=== PATIENT | female | born 1985 | race Caucasian/White ===

== ENCOUNTER 2020-02-04 19:00 | Emergency (ER) | payer BC, MEDICAID ==
[2020-02-04 19:17] VITALS: BP 129/85
--- NOTE | 2020-02-04 20:22 | UC ---
Ear Complaint HPI - HPI Summary HPI Summary: 35-year-old female presents with complaints of left ear pain. States over the past month she has been having some itching and irritation within the ear canal of the left ear. She has been frequently cleaning the ear using a Q-tip. Over the past 3 days she's had progressively worsening pain in the ear. Pain worsens with chewing. Has taken [id number] ibuprofen with some relief in the pain. Has noted some scant drainage from the ear. Denies fever, chills, URI symptoms, hearing loss, tinnitus, or vertigo. - History of Current Complaint Chief Complaint: UCEar Stated Complaint: LEFT EAR COMPLAINT Time Seen by Provider: 02/04/20 19:37 Hx Obtained From: Patient Pain Intensity: 2 - Allergies/Home Medications Allergies/Adverse Reactions: Allergies Allergy/AdvReac Type Severity Reaction Status Date / Time amoxicillin Allergy Rash Verified 02/04/20 19:17 Home Medications: Home Medications Aspirin/Acetaminophen/Caffeine [Excedrin Migraine Caplet] 1 each PO ONCE [History Confirmed 02/04/20] Ibuprofen TAB* [Motrin TAB* 400 MG] 400 mg PO Q6H PRN 02/04/20 [History Confirmed 02/04/20] PMH/Surg Hx/FS Hx/Imm Hx Previously Healthy: Yes - Surgical History Surgical History: None - Family History Family History: Denies significant FMH - Social History Occupation: Employed Full-time Lives: With Family Alcohol Use: Occasionally Substance Use Type: None Smoking Status (MU): Never Smoked Tobacco Review of Systems All Other Systems Reviewed And Are Negative: Yes Constitutional: Negative: Fever, Chills Eyes: Negative: Drainage, Eye Redness ENT: Positive: Ear Ache. Negative: Sore Throat, Nasal Discharge, Sinus Congestion, Sinus Pain/Tenderness Respiratory: Negative: Cough Cardiovascular: Positive: Negative Gastrointestinal: Positive: Negative Genitourinary: Positive: Negative Musculoskeletal: Positive: Negative Neurological/Mental Status: Positive: Negative Is Patient Immunocompromised?: No Physical Exam - Summary Physical Exam Summary: GENERAL APPEARANCE: Well developed, well nourished, alert and cooperative, and appears to be in no acute distress. EYES: Conjunctiva clear. No drainage. EARS: Right external auditory canal and tympanic membrane clear, left external auditory canal erythematous with moderate edema and scant amount of purulent drainage, TM partially visualized without erythema, hearing grossly intact. NOSE: No nasal discharge. THROAT: Pharynx normal. No tonsilar inflammation, swelling, exudate, or lesions. Uvula midline. NECK: Neck supple, non-tender without lymphadenopathy. CARDIAC: Normal S1 and S2. No S3, S4 or murmurs. Rhythm is regular. There is no peripheral edema, cyanosis or pallor. Extremities are warm and well perfused. Capillary refill is less than 2 seconds. Peripheral pulses intact. LUNGS: Clear to auscultation without rales, rhonchi, wheezing or diminished breath sounds. ABDOMEN: Positive bowel sounds. Soft, nondistended, nontender. No guarding or rebound. No masses or hepatosplenomegally. MUSKULOSKELETAL: ROM intact to all extremities. No joint erythema or tenderness. Normal muscular development. Normal gait. SKIN: Skin normal color, texture and turgor with no lesions or eruptions. Triage Information Reviewed: Yes Vital Signs: Initial Vital Signs Temp 98.6 F 02/04/20 19:15 Pulse 86 02/04/20 19:15 Resp 14 02/04/20 19:15 BP 129/85 02/04/20 19:15 Pulse Ox 100 02/04/20 19:15 Vital Signs Reviewed: Yes Ear Complaint Course/Dx - Course Course Of Treatment: 35-year-old female presents with complaints of left ear pain. States over the past month she has been having some itching and irritation within the ear canal of the left ear. She has been frequently cleaning the ear using a Q-tip. Over the past 3 days she's had progressively worsening pain in the ear. Pain worsens with chewing. Has taken [id number] ibuprofen with some relief in the pain. Has noted some scant drainage from the ear. Denies fever, chills, URI symptoms, hearing loss, tinnitus, or vertigo. Afebrile. Vital signs stable. On exam the left external auditory canal was noted to be erythematous with moderate edema and scant amount of purulent drainage, the TM was partially visualized without erythema, and remainder of exam was unremarkable. Discussed findings with the patient and will treat her for an external otitis of the left ear with Cortisporin otic drops 3 drops into the affected ear 4 times a day 7 days. The medication was dispensed home with the patient as her pharmacy was not open. She is to follow-up with her primary care provider in 3-5 days if symptoms are not improving. Anticipatory guidance and warning symptoms were reviewed with the patient. Verbalizes understanding and agrees with plan of care. - Differential Dx/Diagnosis Differential Diagnosis/HQI/PQRI: Otitis Externa, Otitis Media, Perforated TM, URI Provider Diagnosis: Otitis externa of left ear Discharge ED - Sign-Out/Discharge Documenting (check all that apply): Patient Departure All imaging exams completed and their final reports reviewed: No Studies - Discharge Plan Condition: Stable Disposition: HOME Patient Education Materials: Otitis Externa (ED) Referrals: Nikki Crowell MD [Primary Care Provider] - 3 Days Additional Instructions: Ear exam showed an infection of the ear canal of the left ear. A condition called otitis externa. Use Cortisporin ear drops 3 drops into the affected ear 4 times a day for 7 days. Use acetaminophen (Tylenol) or ibuprofen (Advil, Motrin) according to directions as needed for pain. Follow-up with your primary care provider in 3-5 days if symptoms do not improve. Seek immediate medical attention in the emergency room if you develop a fever greater than 100.5 F, severe pain that is not managed with [id number] pain medications, hearing loss, or any worsening of symptoms. - Billing Disposition and Condition Condition: STABLE Disposition: Home - Attestation Statements Provider Attestation: This patient was not seen by me. I was available for consult. Chart reviewed. TANYA
[2020-02-04] MEDS ORDERED: Neomyc/Polym/HC 1% OTIC SUSP* **OTIC LEFT EAR ONE (20:29)
== END 2020-02-04 20:44 | disposition home or self-care (01) ==
LOC: UCCORT 19:00
DX: H60.92 Unspecified otitis externa, left ear (principal); Z88.0 Allergy status to penicillin
CPT/HCPCS: 99212; A9270-GY; G0463